=== PATIENT | male | born 1975 | race Hispanic/Latino ===

== ENCOUNTER 2018-06-24 05:36 | Emergency (ER) | payer OTHER ==
--- NOTE | 2018-06-24 06:01 | ED PDOC ---
Arrival/HPI - General Time Seen by Provider: 06/24/18 05:56 Historian: Patient - History of Present Illness Narrative History of Present Illness (Text): 06/24/18 05:56 Lloyd Huerta is a 43 year old male, whose past medical history includes left meniscus tear repair, who presents to the ED complaining of right knee pain. Patient states he has been experiencing right-sided knee pain for the past 2 days, worsening this morning. Patient reports pain is worse when ambulating on the affected knee. Patient also notes he has a history of an old sports injury to his right knee. Patient denies any recent trauma/injury, decreased range of motion, weakness/numbness/tingling in the extremity, or any other complaints. Time/Duration: < week Symptom Onset: Gradual Symptom Course: Unchanged Activities at Onset: Light Context: Walking, Home Past Medical History - Provider Review Nursing Documentation Reviewed: Yes - Past History Past History: No Previous - Infectious Disease Hx of Infectious Diseases: None - Tetanus Immunization Tetanus Immunization: Unknown - Cardiac Hx Hypertension: Yes - Musculoskeletal/Rheumatological Hx Falls: No - Psychiatric Hx Substance Use: No - Suicidal Assessment Feels Threatened In Home Enviroment: No Family/Social History - Physician Review Nursing Documentation Reviewed: Yes Family/Social History: Unknown Family HX Smoking Status: Current Some Days Smoker Hx Alcohol Use: No Hx Substance Use: No Hx Substance Use Treatment: No Allergies/Home Meds Allergies/Adverse Reactions: Allergies No Known Allergies Allergy (Verified 06/24/18 05:54) Review of Systems - Physician Review All systems were reviewed & negative as marked: Yes - Review of Systems Constitutional: Normal. absent: Fevers Eyes: Normal ENT: Normal Respiratory: Normal. absent: SOB, Cough Cardiovascular: Normal. absent: Chest Pain Gastrointestinal: Normal. absent: Abdominal Pain, Diarrhea, Nausea, Vomiting Genitourinary Male: Normal. absent: Dysuria, Frequency, Hematuria, Urinary Output Changes Musculoskeletal: Arthralgias (+right knee pain). absent: Back Pain, Neck Pain Skin: Normal. absent: Rash Neurological: Normal. absent: Headache, Dizziness Endocrine: Normal Hemo/Lymphatic: Normal Psychiatric: Normal Physical Exam Vital Signs Reviewed: Yes Temperature: Afebrile Blood Pressure: Hypertensive Pulse: Regular Respiratory Rate: Normal Appearance: Positive for: Well-Appearing, Non-Toxic, Comfortable Pain Distress: None Mental Status: Positive for: Alert and Oriented X 3 - Systems Exam Head: Present: Atraumatic, Normocephalic Pupils: Present: PERRL Extroacular Muscles: Present: EOMI Conjunctiva: Present: Normal Mouth: Present: Moist Mucous Membranes Neck: Present: Normal Range of Motion Respiratory/Chest: Present: Clear to Auscultation, Good Air Exchange. No: Respiratory Distress, Accessory Muscle Use Cardiovascular: Present: Regular Rate and Rhythm, Normal S1, S2. No: Murmurs Lower Extremity: Present: NORMAL PULSES, Normal ROM, Swelling (Swelling to right knee), Neurovascularly Intact, Capillary Refill < 2 s. No: Edema, Erythema, Deformity, Temperature Abnormalties Neurological: Present: GCS=15, CN II-XII Intact, Speech Normal Skin: Present: Warm, Dry, Normal Color. No: Rashes Psychiatric: Present: Alert, Oriented x 3, Normal Insight, Normal Concentration Medical Decision Making ED Course and Treatment: 06/24/18 05:57 Impression: 43 year old male complaining of right knee pain for 2 days, worse today. Plan: -- MRI Right Knee -- Norvasc -- Reassess and disposition Progress Notes: - Transfer of Care Patient signed out to Dr:: mike mri and dispo - Scribe Statement The provider has reviewed the documentation as recorded by the Misa Robles Provider Scribe Attestation: All medical record entries made by the Scribe were at my direction and personally dictated by me. I have reviewed the chart and agree that the record accurately reflects my personal performance of the history, physical exam, medical decision making, and the department course for this patient. I have also personally directed, reviewed, and agree with the discharge instructions and disposition. Disposition/Present on Arrival - Present on Arrival Any Indicators Present on Arrival: No History of DVT/PE: No History of Uncontrolled Diabetes: No Urinary Catheter: No History Surgical Site Infection Following: None - Disposition Have Diagnosis and Disposition been Completed?: Yes Diagnosis: Knee pain, Hypertension Disposition: HOME/ ROUTINE Disposition Time: 07:00 Condition: IMPROVED Discharge Instructions (ExitCare): High Blood Pressure in Adults Additional Instructions: LLOYD HUERTA, thank you for letting us take care of you today. The emergency medical care you received today was directed at your acute symptoms. If you were prescribed any medication, please fill it and take as directed. It may take several days for your symptoms to resolve. Return to the Emergency Department if your symptoms worsen, do not improve, or if you have any other problems. Please contact your doctor or call one of the physicians/clinics you have been referred to that are listed on the Patient Visit Information form that is included in your discharge packet. Bring any paperwork you were given at discharge with you along with any medications you are taking to your follow up visit. Our treatment cannot replace ongoing medical care by a primary care provider outside of the emergency department. Thank you for allowing the [facility] team to be part of your care today. Follow up with your primary care doctor and your orthopedic doctor in 2-3 days. Take your blood pressure medication as prescribed. Prescriptions: Nebivolol [Bystolic] 20 mg PO DAILY #14 tab Azilsartan Med/Chlorthalidone [Edarbyclor 40 mg-25 mg] 1 tab PO DAILY #14 tablet amLODIPine [Norvasc] 1 tab PO DAILY #14 tab Referrals: Andrew Mei MD [Primary Care Provider] - Follow up with primary Forms: [employer] (French)
[2018-06-24 06:21] VITALS: BMI 38.3
--- NOTE | 2018-06-24 07:28 | ED PDOC ---
Physical Exam Vital Signs Temp Pulse Resp BP Pulse Ox 06/24/18 06:50 76 18 199/131 H 94 L 06/24/18 06:14 200/119 H 06/24/18 05:55 98.4 F 83 18 200/119 H 94 L Medical Decision Making ED Course and Treatment: 06/24/18 07:25 Case endorsed to me by Dr. Frazier. MRI knee pending and blood pressure reevaluation 06/24/18 11:58 Knee MRI -- The MCL is intact. There is some soft tissue edema adjacent to the proximal MCL which may represent a partial tear or MCL sprain. There is a small linear fissure in the articular cartilage of the femoral groove. This could represent an acute or chronic injury. There is no thinning of the cartilage within the femoral groove or patella. There is a minimal tear or degenerative change along the inferior surface of the body of the medical meniscus at the junction with the posterior horn. Clinical correlation is recommended. There is a large join effusion - RAD Interpretation Radiology Orders: 06/24/18 06:02 KNEE W/O CONTRAST RIGHT [MRI] Stat - Medication Orders Current Medication Orders: Discontinued Medications Amlodipine Besylate (Norvasc) 10 mg PO STAT STA Stop: 06/24/18 06:07 Last Admin: 06/24/18 06:14 Dose: 10 mg MAR Blood Pressure Document 06/24/18 06:14 CNR (Rec: 06/24/18 06:14 CNR [id number]) Blood Pressure Blood Pressure (100/60-150/90) 200/119 Clonidine HCl (Catapres) 0.2 mg PO STAT STA Stop: 06/24/18 06:35 Last Admin: 06/24/18 06:49 Dose: 0.2 mg - Scribe Statement The provider has reviewed the documentation as recorded by the Misa Reina All medical record entries made by the Leonilaibsyed were at my direction and personally dictated by me. I have reviewed the chart and agree that the record accurately reflects my personal performance of the history, physical exam, medical decision making, and the department course for this patient. I have also personally directed, reviewed, and agree with the discharge instructions and disposition. Disposition/Present on Arrival - Present on Arrival Any Indicators Present on Arrival: No History of DVT/PE: No History of Uncontrolled Diabetes: No Urinary Catheter: No History of Decub. Ulcer: No History Surgical Site Infection Following: None - Disposition Have Diagnosis and Disposition been Completed?: Yes Diagnosis: Knee pain, Hypertension Disposition: HOME/ ROUTINE Disposition Time: 11:00 Condition: IMPROVED Discharge Instructions (ExitCare): High Blood Pressure in Adults Additional Instructions: ANGEL LUIS HUERTA, thank you for letting us take care of you today. The emergency medical care you received today was directed at your acute symptoms. If you were prescribed any medication, please fill it and take as directed. It may take several days for your symptoms to resolve. Return to the Emergency Department if your symptoms worsen, do not improve, or if you have any other problems. Please contact your doctor or call one of the physicians/clinics you have been referred to that are listed on the Patient Visit Information form that is included in your discharge packet. Bring any paperwork you were given at discharge with you along with any medications you are taking to your follow up visit. Our treatment cannot replace ongoing medical care by a primary care provider outside of the emergency department. Thank you for allowing the [facility] team to be part of your care today. Follow up with your primary care doctor and your orthopedic doctor in 2-3 days. Take your blood pressure medication as prescribed. Prescriptions: amLODIPine [Norvasc] 1 tab PO DAILY #14 tab Azilsartan Med/Chlorthalidone [Edarbyclor 40 mg-25 mg] 1 tab PO DAILY #14 tablet Nebivolol [Bystolic] 20 mg PO DAILY #14 tab Referrals: Andrew Mei MD [Primary Care Provider] - Follow up with primary Forms: [employer] [employer] (Romanian)
--- NOTE | 2018-06-24 11:25 | MRI ---
Date of service: 06/24/2018 PROCEDURE: MRI Right Knee HISTORY: Pain. COMPARISON: None available. TECHNIQUE: Multiecho multiplanar sequences were performed through the right knee. FINDINGS: ANTERIOR CRUCIATE LIGAMENT:: Intact. POSTERIOR CRUCIATE LIGAMENT:: Intact. MEDIAL MENISCUS:: There is a minimal tear or degenerative change along the inferior surface of the body of the medial meniscus at the junction with the posterior horn. Clinical correlation is recommended LATERAL MENISCUS:: Intact. MEDIAL COLLATERAL LIGAMENT:: The MCL is intact. There is some soft tissue edema adjacent to the proximal MCL which may represent a partial tear or sprain LATERAL COLLATERAL LIGAMENT COMPLEX:: Intact. QUADRICEPS TENDON:: Intact. PATELLAR TENDON:: Intact. CARTILAGE:: There is a small linear fissure in the articular cartilage of the femoral groove. This could represent an acute or chronic injury. There is no thinning of the cartilage within the femoral groove or patella. The finding is seen on axial image 15 series 6 JOINT FLUID:: There is a large joint effusion. OSSEOUS STRUCTURES:: Intact. OTHER FINDINGS: None. IMPRESSION: The MCL is intact. There is some soft tissue edema adjacent to the proximal MCL which may represent a partial tear or MCL sprain There is a small linear fissure in the articular cartilage of the femoral groove. This could represent an acute or chronic injury. There is no thinning of the cartilage within the femoral groove or patella. There is a minimal tear or degenerative change along the inferior surface of the body of the medial meniscus at the junction with the posterior horn. Clinical correlation is recommended There is a large joint effusion
[2018-06-24 11:39] VITALS: BP 174/120; O2SAT 94
[2018-06-24 11:40] VITALS: PULSE 85; RESP 18; TEMP 98
== END 2018-06-24 12:09 | disposition home or self-care (01) ==
LOC: ED 05:36
DX: I10 Essential (primary) hypertension (principal); M25.561 Pain in right knee; F17.210 Nicotine dependence, cigarettes, uncomplicated
CPT/HCPCS: 73721; 96372; 99284; J1885